=== PATIENT | female | born 1970 | race Caucasian/White ===

== ENCOUNTER → 2017-03-09 | Outpatient (CLI) | payer BC ==
--- NOTE | 2017-03-12 10:34 | MM ---
Reason for exam: screening (asymptomatic). Last mammogram was performed 2 years ago. History: Took hormonal contraceptives for 8 years beginning at age 19. Physical Findings: A clinical breast exam by your physician is recommended on an annual basis and results should be correlated with mammographic findings. MG Screening Mammo w CAD Bilateral CC and MLO view(s) were taken. Prior study comparison: March 17, 2015, bilateral MG screening mammo w CAD. February 05, 2014, bilateral MG screening mammo w CAD. The breast tissue is heterogeneously dense. This may lower the sensitivity of mammography. There is no discrete abnormality. ASSESSMENT: Negative, BI-RAD 1 RECOMMENDATION: Routine screening mammogram of both breasts in 1 year.
== END | disposition home or self-care (01) ==
LOC: RADMAMWWP 09:35
PROVIDERS: ATTEND Internal Medicine
DX: Z12.31 Encounter for screening mammogram for malignant neoplasm of breast (principal)

== ENCOUNTER 2018-09-01 17:55 | Emergency (ER) | payer BC ==
[2018-09-01 18:23] VITALS: BP 125/74; PULSE 100; RESP 18; TEMP 98.2
[2018-09-01] MEDS ORDERED: KETOROLAC 60 MG/2 ML VIAL IM STA (18:40)
--- NOTE | 2018-09-01 19:10 | XR ---
Thoracic spine HISTORY: Mid back pain 3 views of the thoracic spine There is a spinal curvature present. Thoracic vertebral bodies show preserved height and bone mineral ization. No evident paraspinal mass. Multilevel spondylosis is present. Mild loss of disc height at t he intervertebral levels. IMPRESSION: Degenerative disc disease and spinal curvature.
--- NOTE | 2018-09-01 19:30 | ED ---
General Adult HPI - General Chief complaint: Back Pain/Injury Stated complaint: back pain Time Seen by Provider: 09/01/18 18:24 Source: patient, RN notes reviewed, old records reviewed Mode of arrival: ambulatory Limitations: no limitations - History of Present Illness Initial comments: 48 old female patient past medical history of L1 laminectomy presents to ED with parathoracic back pain. Patient reports that on she had an adjustment at the chiropractor. Patient reports that patient denies she began to develop some parathoracic back pain and stiffness. Patient states it is worse on the right side. Patient reports that this pain is exacerbated by twisting motions, bending motions. Patient has taken ibuprofen for this pain which has provided some relief. Patient denies all other complaints. Patient denies saddle anesthesia, lower extremity weakness, paresthesias, pain radiation, loss of bowel or bladder control. Systemic: Pt denies fatigue, myalgia, fever/chills, rash. Pt denies weakness, night sweats, weight loss. Neuro: Pt denies headache, visual disturbances, syncope or pre-syncope. HEENT: Pt denies ocular discharge or irritation, otalgia, rhinorrhea, pharyngitis or notable lymphadenopathy. Cardiopulmonary: Pt denies chest pain, SOB, heart palpitations, dyspnea on exertion. Abdominal/GI: Pt denies abdominal pain, n/v/d. : Pt denies dysuria, burning w/ urination, frequency/urgency. Denies new onset urinary or bowel incontinence. MSK: Pt denies myalgia, loss of strength or function in extremities. Neuro: Pt denies new onset weakness, paresthesias. - Related Data Previous Rx's Medication Instructions Recorded Ibuprofen [Motrin] 600 mg PO Q6HR PRN #40 day 09/01/18 Allergies Allergy/AdvReac Type Severity Reaction Status Date / Time No Known Allergies Allergy Verified 09/01/18 18:23 Review of Systems ROS Statement: Those systems with pertinent positive or pertinent negative responses have been documented in the HPI. ROS Other: All systems not noted in ROS Statement are negative. Past Medical History Past Medical History: No Reported History History of Any Multi-Drug Resistant Organisms: None Reported Past Surgical History: Back Surgery, Orthopedic Surgery Additional Past Surgical History / Comment(s): left ankle surgery Past Psychological History: No Psychological Hx Reported Smoking Status: Never smoker Past Alcohol Use History: Occasional Past Drug Use History: None Reported General Exam - General Exam Comments Initial Comments: Constitutional: NAD, AOX3, Pt has pleasant affect. HEENT: NC/AT, trachea midline, neck supple, no lymphadenopathy. Posterior pharynx non erythematous, without exudates. External ears appear normal, without discharge. Mucous membranes moist. Eyes PERRLA, EOM intact. There is no scleral icterus. No pallor noted. Cardiopulmonary: RRR, no murmurs, rubs or gallops, no JVD noted. Lungs CTAB in anterior and posterior simmons. No peripheral edema. Abdominal exam: Abdomen soft and non-distended. Abdomen non-tender to palpation in all 4 quadrants. Bowel sounds active in LLQ. No hepatosplenomegaly. No ecchymosis Neuro: CN II-XII grossly intact. No nuchal rigidity. MSK: Right parathoracic region mildly tenderness to palpation. Pain reproducible by twisting bending motions. 5 out of 5 strength quadriceps and psoas muscle. Ambulatory without difficulty. No posterior calf tenderness bilaterally, homans sign negative bilaterally. Posterior tibialis and radial pulse +2 bilaterally. Sensation intact in upper and lower extremities. Full active ROM in upper and lower extremities, 5/5 stregnth. Limitations: no limitations Course Vital Signs 09/01/18 18:20 Temperature 98.2 F Pulse Rate 100 Respiratory 18 Rate Blood Pressure 125/74 O2 Sat by Pulse 99 Oximetry Medical Decision Making - Medical Decision Making 48 old female patient past medical history of L1 laminectomy presents to ED with parathoracic back pain. Patient reports that on she had an adjustment at the chiropractor. Patient reports that patient denies she began to develop some parathoracic back pain and stiffness. Patient states it is worse on the right side. Patient reports that this pain is exacerbated by twisting motions, bending motions. Patient has taken ibuprofen for this pain which has provided some relief. Patient denies all other complaints. Patient denies saddle anesthesia, lower extremity weakness, paresthesias, pain radiation, loss of bowel or bladder control. Patient vital signs stable, afebrile. Physical exam displayed: Right parathoracic region mildly tenderness to palpation. Pain reproducible by twisting bending motions. 5 out of 5 strength quadriceps and psoas muscle. Ambulatory without difficulty. No posterior calf tenderness bilaterally, homans sign negative bilaterally. Posterior tibialis and radial pulse +2 bilaterally. Sensation intact in upper and lower extremities. Full active ROM in upper and lower extremities, 5/5 stregnth. Plain film of thoracic spine revealed degenerative disc disease and spinal curvature. Patient improved with Toradol administration. Patient states that she is not . These findings were explained to patient at length. Patient to follow up with primary care provider in 1-2 days. Patient to follow up with orthopedic surgeon 1-2 days. Patient to use ibuprofen at home to control symptoms. Patient to return to ER if condition worsens in any way. Case discused with Dr. Stewart. Disposition Clinical Impression: Strain of thoracic back region Disposition: HOME SELF-CARE Condition: Stable Instructions (If sedation given, give patient instructions): Thoracic Back Strain (ED) Additional Instructions: Patient to adhere to previously discussed treatment plan and will take medication(s) as directed. Patient to follow up with PCP in 1-2 days. Patient to return to ED if symptoms do not improve. Please use ibuprofen as needed for pain and inflammation. Please follow-up with primary care provider in 1-2 days for continued evaluation. Please follow-up with orthopedic surgeon Dr. Mahmood for continued evaluation. Please return to ED if new signs or symptoms develop or if condition worsens in anyway. Prescriptions: Ibuprofen [Motrin] 600 mg PO Q6HR PRN #40 day PRN Reason: Pain Is patient prescribed a controlled substance at d/c from ED?: No Referrals: Vasile Logan MD [Primary Care Provider] - 1-2 days Leoncio Mahmood DO [Doctor of Osteopathic Medicine] - 1-2 days
== END 2018-09-01 19:50 | disposition home or self-care (01) ==
LOC: EC 17:55
DX: S29.012A Strain of muscle and tendon of back wall of thorax, initial encounter (principal); M51.34 Other intervertebral disc degeneration, thoracic region; M43.8X4 Other specified deforming dorsopathies, thoracic region; Z98.890 Other specified postprocedural states; X58.XXXA Exposure to other specified factors, initial encounter
CPT/HCPCS: 72072; 99284; 96372; J1885

== ENCOUNTER → 2019-02-17 | Outpatient (CLI) | payer BC ==
--- NOTE | 2019-02-18 14:01 | MM ---
Reason for exam: screening (asymptomatic). Last mammogram was performed 1 year and 11 months ago. History: Took hormonal contraceptives for 8 years beginning at age 19. Physical Findings: A clinical breast exam by your physician is recommended on an annual basis and results should be correlated with mammographic findings. MG 3D Screening Mammo W/Cad Bilateral CC and MLO view(s) were taken. Prior study comparison: March 09, 2017, bilateral MG screening mammo w CAD. March 17, 2015, bilateral MG screening mammo w CAD. The breast tissue is heterogeneously dense. This may lower the sensitivity of mammography. No discrete abnormality. ASSESSMENT: Negative, BI-RAD 1 RECOMMENDATION: Routine screening mammogram of both breasts in 1 year.
== END | disposition home or self-care (01) ==
LOC: RADMAMWWP 15:35
PROVIDERS: ATTEND Internal Medicine
DX: Z12.31 Encounter for screening mammogram for malignant neoplasm of breast (principal)
CPT/HCPCS: 77063; 77067

== ENCOUNTER → 2020-06-08 | Outpatient (CLI) | payer BC ==
--- NOTE | 2020-06-08 13:26 | MM ---
Reason for exam: screening (asymptomatic). Last mammogram was performed 1 year and 4 months ago. History: Patient is postmenopausal. Took hormonal contraceptives for 8 years beginning at age 19. Physical Findings: A clinical breast exam by your physician is recommended on an annual basis and results should be correlated with mammographic findings. MG Screening Mammo w CAD Bilateral CC and MLO view(s) were taken. XCCL view(s) were taken of the left breast. Prior study comparison: February 17, 2019, bilateral MG 3d screening mammo w/cad. March 09, 2017, bilateral MG screening mammo w CAD. The breast tissue is heterogeneously dense. This may lower the sensitivity of mammography. No significant changes when compared with prior studies. ASSESSMENT: Benign, BI-RAD 2 RECOMMENDATION: Routine screening mammogram of both breasts in 1 year.
== END | disposition home or self-care (01) ==
LOC: RADMAMWWP 07:04
PROVIDERS: ATTEND Family Medicine
DX: Z12.31 Encounter for screening mammogram for malignant neoplasm of breast (principal)
CPT/HCPCS: 77067

== ENCOUNTER → 2020-11-01 | Outpatient (CLI) | payer BC ==
--- NOTE | 2020-11-01 10:52 | P.STRESS ---
- Stress Test Note Stress Test Results/Findings: Exam Performed: stress test Exam Date: 11/01/20 Reason for Exam: PALPITATIONS, CHEST PAIN Height: 5 ft 10 in Weight: 70.5 kg Protocol: SAMEER Stage: 3 Duration of Exercise: 9:00 MINUTES Resting Heart Rate: 77 Resting Blood Pressure: 108/73 Maximum Achieved Heart Rate: 165 Maximum Achieved Blood Pressure: 140/72 85% PMHR: 146 100% PMHR: 172 METS: 10.5 Technologist Comment: Stress Test Results/Findings: This is a 50-year-old female with history of smoking and palpitations and also chest pain being evaluated for cardiac status. Stress data: Baseline EKG showed sinus rhythm with normal TX interval and QRS duration. Blood pressure at rest is 180 73 with pulse rate of 77. Patient walked on the Sameer protocol for 9 minutes achieving a maximal heart rate of 165 with a blood pressure 140/72. EKGs taken during and after exercise did not reveal any significant changes from baseline. Patient did not experience any chest pain. Final impression: #1. Negative stress test #2. Patient did not express any chest pain about 3. No arrhythmias noted. #4. Patient's exercise capacity is good
== END | disposition home or self-care (01) ==
LOC: RADNMMAIN 08:43
PROVIDERS: ATTEND Family Medicine
DX: R07.9 Chest pain, unspecified (principal); R00.2 Palpitations
CPT/HCPCS: 93017

== ENCOUNTER → 2022-06-07 | Outpatient (CLI) | payer BC ==
--- NOTE | 2022-06-20 01:43 | HM ---
HOLTER MONITOR REPORT A 24-hour Holter. INDICATIONS: Palpitations. FINDINGS: Underlying rhythm is sinus with an average heart rate of 84 beats per minute, heart rate varied from 51 beats per minute to 146 beats per minute. Frequent PACs are noted. Occasional PVCs are noted. There were episodes of sinus tachycardia. CONCLUSION: The 48-hour Holter monitor shows sinus rhythm with PVCs and PACs without any episodes of atrial fibrillation or flutter and no pauses of more than 2.5 seconds. MMKELVIN / BELAN: [id number] /
== END | disposition home or self-care (01) ==
LOC: RADECHMAIN 07:30
PROVIDERS: ATTEND Family Medicine
DX: I49.3 Ventricular premature depolarization (principal); R00.2 Palpitations; I47.1 Supraventricular tachycardia; R94.31 Abnormal electrocardiogram [ECG] [EKG]
CPT/HCPCS: 93225; 93226

== ENCOUNTER → 2023-08-20 | Outpatient (CLI) | payer BC ==
--- NOTE | 2023-08-20 16:56 | BD ---
EXAMINATION TYPE: Axial Bone Density DATE OF EXAM: 08/20/2023 CLINICAL HISTORY: 53 years old Female. ICD-10 CODE: M85.80 OT DISRD OF BONE DENSITY Height: 69 Weight: 177.0 FRAX RISK QUESTIONS: Alcohol (3 or more units per day): no Family History (Parent hip fracture): no Glucocorticoids (More than 3mos): no (Ex: prednisone, prednisolone, methylprednisolone, dexamethasone, and hydrocortisone). History of Fracture in Adulthood: yes Secondary Osteoporosis: 1. Type 1 Diabetes: no 2. Hyperthyroidism: no 3. Menopause before 45: no 4. Malnutrition: no 5. Chronic liver disease: no Rheumatoid Arthritis: no Current Tobacco Use: no RISK FACTORS HISTORY OF: Surgery to Spine/Hip(right/left)/Wrist (right/left): l-5 s-1 herniated disk removed When: 2012 EXAM MEASUREMENTS: Bone mineral densitometry was performed using the [employer] System. Bone mineral density as measured about the Lumbar spine is: ----- L1-L4(G/cm2): 0.926 T Score Values are as follows: ----- L1: -1.5 ----- L2: -2.9 ----- L3: -2.2 ----- L4: -2.0 ----- L1-L4: -2.1 Z Score Values are as follows: ----- L1: -1.5 ----- L2: -3.0 ----- L3: -2.2 ----- L4: -2.0 ----- L1-L4: -2.1 Bone mineral density : baseline Bone mineral density about the R hip (g/cm2): 0.874 Bone mineral density about the L hip (g/cm2): 0.888 T Score values are as follows: -----R Neck: -0.8 -----L Neck: -0.8 -----R Total: -1.1 -----L Total: -1.0 Z Score values are as follows: -----R Neck: -0.3 -----L Neck: -0.3 -----R Total: -0.9 -----L Total: -0.8 Bone mineral density : baseline FRAX%s: The graph provided illustrates a 7.7% chance for a major osteoporotic fx and a 0.3% chance fo r the hips probability for fx in 10 years time. IMPRESSION: Osteopenia (T Score between -2.5 and -1). There is slightly increased risk of fracture and the patient may be considered for treatment. Re-Screen 2-5 years. NOTE: T-SCORE=SD OF THE YOUNG ADULT MEAN.
--- NOTE | 2023-08-21 13:25 | MM ---
Reason for Exam: Screening (asymptomatic). Last mammogram was performed 3 year(s) and 2 month(s) ago. Patient History: Menarche at age 16. First Full-Term at age 30. Postmenopausal. Hormonal Contraceptives for 8 years from age 19 until age 29. Risk Values: Ly 5 year model risk: 1.0%. NCI Lifetime model risk: 8.9%. Prior Study Comparison: 03/09/2017 Bilateral Screening Mammogram, [facility]. 02/17/2019 Bilateral Screening Mammogram, [facility]. 06/08/2020 Bilateral Screening Mammogram, [facility]. Tissue Density: The breast tissue is almost entirely fat. Findings: Analyzed By CAD. There is no suspicious group of microcalcifications or new suspicious mass. Overall Assessment: Negative, BI-RAD 1 Management: Screening Mammogram of both breasts in [address] [facility] will attempt to contact patient to return for supplemental views and ultrasound if indicated. Patient should continue monthly self-breast exams. A clinical breast exam by your physician is recommended on an annual basis. This exam should not preclude additional follow-up of suspicious palpable abnormalities. Note on Ly scores and lifetime risk: 1. A Ly score greater than 3% is considered moderate risk. If this is the case, consider specialist referral to assess eligibility for a risk reducing agent. 2. If overall lifetime risk for the development of breast cancer is 20% or higher, the patient may qualify for future screening with alternating mammogram and breast MRI. Electronically signed and approved by: Atif Baker DO
== END | disposition home or self-care (01) ==
LOC: RADMAMWWP 15:22
PROVIDERS: ATTEND Family Medicine
DX: Z12.31 Encounter for screening mammogram for malignant neoplasm of breast (principal); M81.0 Age-related osteoporosis without current pathological fracture; M85.89 Other specified disorders of bone density and structure, multiple sites; Z78.0 Asymptomatic menopausal state
CPT/HCPCS: 77063; 77067; 77080

== ENCOUNTER → 2023-08-31 | Outpatient (CLI) | payer BC ==
--- NOTE | 2023-09-10 11:28 | P.CEMON ---
7 DAY EVENT MONITOR REPORT: INDICATION: Ventricular premature debilitation I49.3. START DATE: 08/31/2019 END DATE: 09/06/2023 Patient wore the monitor for 6.7 which is 95% of total time. FINDINGS: Overall [good] quality study. Patient's baseline rhythm was [normal sinus rhythm premature atrial contraction]. Baseline heart rate was 77 bpm. There were no observed atrial fibrillation, atrial flutter or sustained ventricular rhythm. There were no observed sinus pauses which were more than 2 second long. There were frequent premature atrial contractions, frequently in fashion of atrial bigeminy seen during the testing.. Patient symptoms correlation: Patient reported frequent episodes of palpitations and irregular heartbeat sensations which corresponded to PACs and atrial bigeminy. May consider performing a 48-hour Holter monitor with the capacity of quantifying PACs to see if it is clinically significant and needs to be suppressed. Arnaud Villatoro MD, FACC, RPVI Thank you for allowing [facility] to participate in this patient's care. Feel free to reach out in case of any followup questions. Please CC this report to Dr. Carlos Sotomayor
--- NOTE | 2023-09-10 14:06 | EM ---
7 DAY EVENT MONITOR REPORT: INDICATION: Ventricular premature debilitation I49.3. START DATE: 08/31/2019 END DATE: 09/06/2023 Patient wore the monitor for 6.7 which is 95% of total time. FINDINGS: Overall [good] quality study. Patient's baseline rhythm was [normal sinus rhythm premature atrial contraction]. Baseline heart rate was 77 bpm. There were no observed atrial fibrillation, atrial flutter or sustained ventricular rhythm. There were no observed sinus pauses which were more than 2 second long. There were frequent premature atrial contractions, frequently in fashion of atrial bigeminy seen during the testing.. Patient symptoms correlation: Patient reported frequent episodes of palpitations and irregular heartbeat sensations which corresponded to PACs and atrial bigeminy. May consider performing a 48-hour Holter monitor with the capacity of quantifying PACs to see if it is clinically significant and needs to be suppressed. Arnaud Villatoro MD, FACC, RPVI Thank you for allowing [facility] to participate in this patient's care. Feel free to reach out in case of any followup questions. Please CC this report to Dr. Carlos PENALOZA
== END | disposition home or self-care (01) ==
LOC: RADECHMAIN 08:08
PROVIDERS: ATTEND Family Medicine
DX: I49.3 Ventricular premature depolarization (principal); R00.2 Palpitations; R47.1 Dysarthria and anarthria
CPT/HCPCS: 93270

== ENCOUNTER → 2024-10-02 | Outpatient (CLI) | payer BC ==
--- NOTE | 2024-10-02 17:43 | MM ---
Reason for Exam: Screening (asymptomatic). Last mammogram was performed 1 year(s) and 2 month(s) ago. Patient History: Menarche at age 16. First Full-Term at age 30. Postmenopausal. Hormonal Contraceptives for 8 years from age 19 until age 29. Risk Values: Ly 5 year model risk: 1.1%. NCI Lifetime model risk: 8.8%. Prior Study Comparison: 02/17/2019 Bilateral Screening Mammogram, [facility]. 06/08/2020 Bilateral Screening Mammogram, [facility]. 08/20/2023 Bilateral MG 3D screening mammo w/cad, [facility]. Tissue Density: There are scattered areas of fibroglandular density. Findings: Analyzed By CAD. There is no suspicious group of microcalcifications or new suspicious mass in either breast. Overall Assessment: Negative, BI-RAD 1 Management: Screening Mammogram of both breasts in 1 year. Patient should continue monthly self-breast exams. A clinical breast exam by your physician is recommended on an annual basis. This exam should not preclude additional follow-up of suspicious palpable abnormalities. Note on Ly scores and lifetime risk: 1. A Ly score greater than 3% is considered moderate risk. If this is the case, consider specialist referral to assess eligibility for a risk reducing agent. 2. If overall lifetime risk for the development of breast cancer is 20% or higher, the patient may qualify for future screening with alternating mammogram and breast MRI. [facility], , 10/02/2024 5:40 PM. Electronically signed and approved by: Tiffanie Robbins M.D. Radiologist
== END | disposition home or self-care (01) ==
LOC: RADMAMWWP 15:34
PROVIDERS: ATTEND Family Medicine
DX: Z12.31 Encounter for screening mammogram for malignant neoplasm of breast (principal); R92.323 Mammographic fibroglandular density, bilateral breasts; Z78.0 Asymptomatic menopausal state; Z92.0 Personal history of contraception
CPT/HCPCS: 77063; 77067

== ENCOUNTER → 2024-11-07 | Outpatient (CLI) | payer BC ==
--- NOTE | 2024-11-08 13:59 | CT ---
EXAMINATION TYPE: CT soft tissue neck wo con DATE OF EXAM: 11/07/2024 5:24 PM COMPARISON: None. CLINICAL INDICATION: Female, 54 years old with history of M54.2 CERVICALGIA L04.0 ACUTE LYMPHADENITIS OF FAC; PHH, Swelling x3 months on right side of neck just below base of skull. TECHNIQUE: Standard enhanced CT of the neck. Axial sections with coronal and sagittal reformats were obtained. CT DLP: 354.2 mGycm, Automated exposure control for dose reduction was used. FINDINGS: Brain: Visualized portions are grossly unremarkable. Orbits: Unremarkable Sinuses: Mucosal retention cyst in posterior right maxillary sinus. Spaces of the neck: Clear and symmetric. Musculoskeletal: No acute osseous pathology. Lymph nodes: Multiple nonenlarged lymph nodes are seen along both anterior chains of the neck. Vascular structures: Visualized major arteries are patent without evidence of aneurysm. Thoracic Inlet/airway: Airway is patent. The lung apices are clear. Soft tissues/Thyroid: Thyroid and remainder of the soft tissues are unremarkable. Other: none. IMPRESSION No acute abnormality in the neck or CT findings to explain reported symptoms. [facility], , 11/08/2024 1:56 PM
== END | disposition home or self-care (01) ==
LOC: RADCTMAIN 17:02
PROVIDERS: ATTEND Family Medicine
DX: M54.2 Cervicalgia (principal); L04.0 Acute lymphadenitis of face, head and neck
CPT/HCPCS: 70490